=== PATIENT | female | born 2005 | race Caucasian/White ===

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

== ENCOUNTER → 2023-01-24 | Outpatient (CLI) | payer OTHER | LOC: M PAIN 13:00 | PROVIDERS: ATTEND Anesthesiology | DX: M96.1 Postlaminectomy syndrome, not elsewhere classified (principal); M79.2 Neuralgia and neuritis, unspecified; M79.10 Myalgia, unspecified site; M79.18 Myalgia, other site; N31.9 Neuromuscular dysfunction of bladder, unspecified; G43.909 Migraine, unspecified, not intractable, without status migrainosus; J45.909 Unspecified asthma, uncomplicated; F90.9 Attention-deficit hyperactivity disorder, unspecified type; F32.A Depression, unspecified; F41.9 Anxiety disorder, unspecified; M41.9 Scoliosis, unspecified; Z79.899 Other long term (current) drug therapy ==

== ENCOUNTER → 2023-04-02 | Outpatient (CLI) | payer OTHER ==
[~2023-04-02] MED LIST changes: +TRIAMCINOLONE ACETONIDE SUSP 40MG/ML 1ML VIAL As Ordered ONE; +diazePAM 5MG TABLET As Ordered ONE
== END ==
LOC: M PAIN 09:30
PROVIDERS: ATTEND Anesthesiology
DX: M79.18 Myalgia, other site (principal); G89.29 Other chronic pain; G43.909 Migraine, unspecified, not intractable, without status migrainosus; J45.909 Unspecified asthma, uncomplicated; Z86.59 Personal history of other mental and behavioral disorders; Z88.8 Allergy status to other drugs, medicaments and biological substances; Z91.040 Latex allergy status; Z79.899 Other long term (current) drug therapy
CPT/HCPCS: 20552; J3301; S0020

== ENCOUNTER → 2023-04-30 | Outpatient (CLI) | payer OTHER ==
[~2023-04-30] MED LIST changes: -GABA-283; +GABA-284; -TRIAMCINOLONE ACETONIDE SUSP 40MG/ML 1ML VIAL As Ordered ONE; -diazePAM 5MG TABLET As Ordered ONE
== END ==
LOC: M PAIN 15:15
PROVIDERS: ATTEND Anesthesiology
DX: M54.50 Low back pain, unspecified (principal); M54.6 Pain in thoracic spine; R10.9 Unspecified abdominal pain; Z98.890 Other specified postprocedural states; M79.2 Neuralgia and neuritis, unspecified; G89.29 Other chronic pain; N31.9 Neuromuscular dysfunction of bladder, unspecified; G43.909 Migraine, unspecified, not intractable, without status migrainosus; J45.909 Unspecified asthma, uncomplicated; F90.9 Attention-deficit hyperactivity disorder, unspecified type; F32.A Depression, unspecified; F41.9 Anxiety disorder, unspecified; M41.9 Scoliosis, unspecified; Z79.899 Other long term (current) drug therapy; Z88.8 Allergy status to other drugs, medicaments and biological substances; Z91.040 Latex allergy status

== ENCOUNTER → 2023-06-02 | Outpatient (CLI) | payer OTHER | LOC: M RAD 08:34 | PROVIDERS: ATTEND Anesthesiology | DX: M54.9 Dorsalgia, unspecified (principal) ==

== ENCOUNTER → 2023-06-05 | Outpatient (CLI) | payer OTHER | LOC: M PLAIMG 07:18 | PROVIDERS: ATTEND Anesthesiology | DX: M54.9 Dorsalgia, unspecified (principal) ==

== ENCOUNTER → 2023-06-25 | Outpatient (CLI) | payer OTHER | LOC: M PAIN 09:15 | PROVIDERS: ATTEND Nurse Practitioner Family | DX: M54.9 Dorsalgia, unspecified (principal); R10.9 Unspecified abdominal pain; M79.2 Neuralgia and neuritis, unspecified; Z98.890 Other specified postprocedural states; G89.29 Other chronic pain; G43.909 Migraine, unspecified, not intractable, without status migrainosus; J45.909 Unspecified asthma, uncomplicated; F32.A Depression, unspecified; F41.9 Anxiety disorder, unspecified; K29.50 Unspecified chronic gastritis without bleeding; Z79.899 Other long term (current) drug therapy; Z91.040 Latex allergy status; Z88.8 Allergy status to other drugs, medicaments and biological substances ==

== ENCOUNTER 2023-08-12 23:55 | Emergency (ER) | payer MEDICAID, OTHER ==
[~2023-08-12] VITALS: Ht 160 cm; Wt 55.5 kg
[2023-08-13] MEDS ORDERED: PROPARACAINE 0.5% OPHTH SOL 15ML OU ONE (11:15)
[2023-08-13 11:55] VITALS: BP 111/66; TEMP 97.6; O2SAT 100
== END 2023-08-13 11:56 | disposition home or self-care (01) ==
LOC: M ED 23:55
DX: H57.02 Anisocoria (principal); Z79.899 Other long term (current) drug therapy; Z79.51 Long term (current) use of inhaled steroids

== ENCOUNTER 2023-08-14 11:48 | Emergency (ER) | payer OTHER ==
[~2023-08-14] VITALS: Ht 160 cm; Wt 55.5 kg
[2023-08-14 12:03] VITALS: BP 106/65; TEMP 98.5; O2SAT 97
== END 2023-08-14 13:00 | disposition left against medical advice (07) ==
LOC: M ED 11:48
DX: Z53.21 Procedure and treatment not carried out due to patient leaving prior to being seen by health care provider (principal)

== ENCOUNTER → 2023-08-29 | Outpatient (CLI) | payer OTHER | LOC: M PAIN 10:30 | PROVIDERS: ATTEND Anesthesiology | DX: M79.2 Neuralgia and neuritis, unspecified (principal); Z98.890 Other specified postprocedural states; R10.2 Pelvic and perineal pain; N31.9 Neuromuscular dysfunction of bladder, unspecified; G43.909 Migraine, unspecified, not intractable, without status migrainosus; J45.909 Unspecified asthma, uncomplicated; F32.A Depression, unspecified; F41.9 Anxiety disorder, unspecified; M41.9 Scoliosis, unspecified; Z79.899 Other long term (current) drug therapy; Z88.8 Allergy status to other drugs, medicaments and biological substances; Z91.040 Latex allergy status ==

== ENCOUNTER → 2023-11-21 | Outpatient (CLI) | payer OTHER | LOC: M RAD 07:13 | PROVIDERS: ATTEND Nurse Practitioner Family | DX: R10.11 Right upper quadrant pain (principal) ==

== ENCOUNTER → 2023-12-11 | Outpatient (CLI) | payer OTHER ==
[~2023-12-11] MED LIST changes: +AMIT10TA7 PO; +FLUT12AE2 IH; +GABA-282 PO; +GABA-284 PO; +ONDA-83 PO; +OXYB15TA14 PO; +PANT40TA29 PO; +VITA100093 PO
[2023-12-11 11:34] LABS: HEMATOCRIT 35.5 % (36.0-47.0); HEMOGLOBIN 11.7 g/dl (12.0-15.5); MEAN CORPUSCULAR HEMOGLOBIN 29.4 pg (27.0-33.0); MEAN CORPUSCULAR VOLUME 89.2 fl (80.0-96.0); PLATELET COUNT, AUTOMATED 312 10^3/uL (150-450); RED BLOOD COUNT 3.98 10^6/uL (4.00-5.40); WHITE BLOOD COUNT 7.9 10^3/uL (4.0-10.0)
[2023-12-11 11:47] LABS: INR 1.07; PARTIAL THROMBOPLASTIN TIME 30.5 SECONDS (24.8-34.2); PROTHROMBIN TIME 13.6 SECONDS (12.5-14.5)
[2023-12-11 12:02] LABS: ALBUMIN 3.8 G/DL (3.2-5.2); ALKALINE PHOSPHATASE 75 U/L (46-116); ALT/SGPT < 9 U/L (7.0-40); AST/SGOT < 8 U/L (<34); BILIRUBIN,TOTAL 0.2 MG/DL (0.3-1.2); BLOOD UREA NITROGEN 9 MG/DL (9-23); CALCIUM LEVEL 8.5 MG/DL (8.5-10.1); CARBON DIOXIDE LEVEL 27 MMOL/L (20-31); CHLORIDE LEVEL 108 MMOL/L (98-107); CREATININE FOR GFR 0.62 MG/DL (0.55-1.30); GLUCOSE, FASTING 84 MG/DL (60-100); POTASSIUM SERUM 3.8 MMOL/L (3.5-5.1); SODIUM LEVEL 140 MMOL/L (136-145); TOTAL PROTEIN 6.6 G/DL (5.7-8.2)
[2023-12-11 13:36] LABS: APPEARANCE, URINE HAZY (CLEAR); BACTERIA, URINE AUTO NEGATIVE (NEGATIVE); BILIRUBIN, URINE AUTO NEGATIVE (NEGATIVE); BLOOD, URINE BLOOD NEGATIVE (NEGATIVE); COLOR, URINE YELLOW (YELLOW); GLUCOSE, URINE (UA) AUTO NEGATIVE (NEGATIVE); KETONE, URINE AUTO NEGATIVE (NEGATIVE); LEUKOCYTE ESTERASE, URINE AUTO 2+ (NEGATIVE); MUCUS, URINE SMALL (NEGATIVE); NITRITE, URINE AUTO NEGATIVE (NEGATIVE); PROTEIN, URINE AUTO 2+ mg/dL (NEGATIVE); RBC, URINE AUTO 3 /HPF (0-3); SPECIFIC GRAVITY URINE AUTO 1.014 (1.002-1.035); SQUAMOUS EPITHELIAL CELL UR AU 1 /HPF (0-6); UROBILINOGEN, URINE AUTO 0.2 mg/dL (0.0-2.0); WBC, URINE AUTO 23 /HPF (0-3)
== END ==
LOC: M RAD 10:39
PROVIDERS: ATTEND Neurological Surgery
DX: Z01.811 Encounter for preprocedural respiratory examination (principal); R06.02 Shortness of breath; M47.26 Other spondylosis with radiculopathy, lumbar region

== ENCOUNTER → 2023-12-19 | Outpatient (REF) | payer OTHER ==
[2023-12-19 18:54] LABS: FERRITIN 3.8 NG/ML (7.3-270.7)
[2023-12-19 18:56] LABS: FOLATE 17.8 NG/ML (>5.4)
[2023-12-19 18:59] LABS: PERCENT SATURATION 7.5 % (13.2-45.0)
== END ==
LOC: M LAB REF 16:16
PROVIDERS: ATTEND Internal Medicine
DX: D80.2 Selective deficiency of immunoglobulin A [IgA] (principal); D64.9 Anemia, unspecified

== ENCOUNTER 2023-12-25 08:10 | Day surgery (SDC) | payer OTHER ==
[~2023-12-25] VITALS: Ht 160 cm; Wt 57.6 kg
[~2023-12-25 08:10] MED LIST changes: +NS 1,000 ML IV ONE
[2023-12-25] MEDS ORDERED: GLYCOPYRROLATE INJ 0.2 MG/ML 2 ML VIAL As Ordered ONE (10:09)
[2023-12-25] MEDS ORDERED: fentaNYL 100 MCG/2 ML INJECTION As Ordered ONE (10:09)
[2023-12-25] MEDS ORDERED: MIDAZOLAM INJ 2MG/2ML VIAL As Ordered ONE (10:10)
[2023-12-25 11:17] VITALS: BP 115/71; TEMP 96.6; O2SAT 99
== END 2023-12-25 10:50 | disposition home or self-care (01) ==
LOC: M OPP 08:10
PROVIDERS: ATTEND Internal Medicine Gastroenterology
DX: K31.89 Other diseases of stomach and duodenum (principal); K29.70 Gastritis, unspecified, without bleeding; R10.13 Epigastric pain; R68.81 Early satiety; R11.2 Nausea with vomiting, unspecified; Z79.51 Long term (current) use of inhaled steroids; Z79.891 Long term (current) use of opiate analgesic; Z79.899 Other long term (current) drug therapy; Z88.8 Allergy status to other drugs, medicaments and biological substances; Z91.040 Latex allergy status
CPT/HCPCS: 43239; 88305; J2250; J3010

== ENCOUNTER → 2024-01-21 | Outpatient (REF) | payer OTHER ==
[~2024-01-21] MED LIST changes: -NS 1,000 ML IV ONE
[2024-01-21 18:13] LABS: FERRITIN 11.4 NG/ML (7.3-270.7)
== END ==
LOC: M LAB REF 16:25
PROVIDERS: ATTEND Internal Medicine
DX: D64.9 Anemia, unspecified (principal)

== ENCOUNTER → 2024-01-29 | Outpatient (CLI) | payer OTHER | LOC: M PAIN 11:00 | PROVIDERS: ATTEND Nurse Practitioner Family | DX: G43.709 Chronic migraine without aura, not intractable, without status migrainosus (principal); J45.909 Unspecified asthma, uncomplicated; F32.A Depression, unspecified; F41.9 Anxiety disorder, unspecified; Z79.899 Other long term (current) drug therapy | CPT/HCPCS: 99213; G0463 ==

== ENCOUNTER → 2024-02-06 | Outpatient (CLI) | payer OTHER | LOC: M RAD 11:40 | PROVIDERS: ATTEND Nurse Practitioner Family | DX: R10.11 Right upper quadrant pain (principal); K82.9 Disease of gallbladder, unspecified | CPT/HCPCS: 78227; A9537 ==

== ENCOUNTER → 2024-03-04 | Outpatient (REF) | payer OTHER, MEDICAID ==
[~2024-03-04] MED LIST changes: +ONDA-282 PO; -ONDA4TAB6 PO
[2024-03-04 19:52] LABS: FERRITIN 8.1 NG/ML (7.3-270.7)
== END ==
LOC: M LAB REF 18:29
PROVIDERS: ATTEND Internal Medicine
DX: D51.9 Vitamin B12 deficiency anemia, unspecified (principal); D50.9 Iron deficiency anemia, unspecified

== ENCOUNTER → 2024-04-16 | Outpatient (CLI) | payer OTHER | LOC: M RAD 08:33 | PROVIDERS: ATTEND Nurse Practitioner Family | DX: R11.0 Nausea (principal); K30 Functional dyspepsia | CPT/HCPCS: 78264; A9541 ==

== ENCOUNTER 2024-05-28 13:41 | Emergency (ER) | payer MEDICAID, OTHER | END 2024-05-28 13:54 | disposition left against medical advice (07) | LOC: M ED 13:41 | DX: Z53.21 Procedure and treatment not carried out due to patient leaving prior to being seen by health care provider (principal) ==

== ENCOUNTER → 2024-06-05 | Outpatient (REF) | payer OTHER ==
[2024-06-05 15:13] LABS: APPEARANCE, URINE HAZY (CLEAR); BACTERIA, URINE AUTO 1+ (NEGATIVE); BILIRUBIN, URINE AUTO NEGATIVE (NEGATIVE); BLOOD, URINE BLOOD 1+ (NEGATIVE); COLOR, URINE YELLOW (YELLOW); GLUCOSE, URINE (UA) AUTO NEGATIVE (NEGATIVE); KETONE, URINE AUTO NEGATIVE (NEGATIVE); LEUKOCYTE ESTERASE, URINE AUTO 3+ (NEGATIVE); MUCUS, URINE SMALL (NEGATIVE); NITRITE, URINE AUTO NEGATIVE (NEGATIVE); PROTEIN, URINE AUTO NEGATIVE (NEGATIVE); RBC, URINE AUTO 6 /HPF (0-3); SPECIFIC GRAVITY URINE AUTO 1.014 (1.002-1.035); SQUAMOUS EPITHELIAL CELL UR AU 0 /HPF (0-6); UROBILINOGEN, URINE AUTO 0.2 mg/dL (0.0-2.0); WBC, URINE AUTO 29 /HPF (0-3)
== END ==
LOC: M LAB REF 14:03
PROVIDERS: ATTEND Urology
DX: N39.0 Urinary tract infection, site not specified (principal)

== ENCOUNTER → 2024-07-23 | Outpatient (REF) | payer OTHER, MEDICAID ==
[~2024-07-23] MED LIST changes: +GABA-1172 PO; -GABA-282 PO
[2024-07-23 14:22] LABS: FERRITIN 12.6 NG/ML (7.3-270.7)
== END ==
LOC: M LAB REF 12:39
PROVIDERS: ATTEND Internal Medicine
DX: D50.9 Iron deficiency anemia, unspecified (principal); D51.9 Vitamin B12 deficiency anemia, unspecified

== ENCOUNTER → 2024-10-15 | Outpatient (REF) | payer OTHER, MEDICAID ==
[~2024-10-15] MED LIST changes: +ALBU8.5H; +ALPR0.5T3 PO; +AMIT50TA PO; +AMPH1TAB2 PO; -CYPR4TA; +CYPR4TAB36; +FAMO40TA3 PO; +FERR324T2 PO; +PROM25TA12; +SERT50TA29 PO
== END ==
LOC: M LAB REF 16:12
PROVIDERS: ATTEND Internal Medicine
DX: D50.9 Iron deficiency anemia, unspecified (principal)

== ENCOUNTER 2024-11-11 07:44 | Day surgery (SDC) | payer OTHER ==
[~2024-11-11] VITALS: Ht 160 cm; Wt 49.9 kg
[~2024-11-11 07:44] MED LIST changes: +ALL10TAB3 PO; +GENT60IN4; +MULT-90 PO; +OMEP40CA4 PO; -PROM25TA12; +PROM25TA12 PO; +RIZA10TA58 PO; +STRA80CA PO; +VITA-113 PO; +VITA500C24 PO
[2024-11-11 10:50] VITALS: BP 95/67; O2SAT 99
== END 2024-11-11 10:51 | disposition home or self-care (01) ==
LOC: M OPP 07:44
PROVIDERS: ATTEND Internal Medicine Gastroenterology
DX: K64.8 Other hemorrhoids (principal); R93.3 Abnormal findings on diagnostic imaging of other parts of digestive tract; R10.84 Generalized abdominal pain; Z88.5 Allergy status to narcotic agent; Z88.8 Allergy status to other drugs, medicaments and biological substances; Z91.040 Latex allergy status; Z91.048 Other nonmedicinal substance allergy status; Z79.899 Other long term (current) drug therapy; J45.909 Unspecified asthma, uncomplicated; F17.290 Nicotine dependence, other tobacco product, uncomplicated

== ENCOUNTER → 2024-12-10 | Outpatient (REF) | payer OTHER, MEDICAID | LOC: M LAB REF 12:57 | PROVIDERS: ATTEND Internal Medicine | DX: Z01.818 Encounter for other preprocedural examination (principal) ==

== ENCOUNTER → 2025-06-10 | Outpatient (REF) | payer OTHER, MEDICAID ==
[~2025-06-10] MED LIST changes: +AMIT10TA11 PO; -AMIT10TA7 PO
[2025-06-10 18:43] LABS: VITAMIN B12 LEVEL 369.0 PG/ML (211-911)
== END ==
LOC: M LAB REF 17:45
PROVIDERS: ATTEND Internal Medicine
DX: K29.70 Gastritis, unspecified, without bleeding (principal); R62.7 Adult failure to thrive; D50.9 Iron deficiency anemia, unspecified